=== PATIENT | female | born 2000 | race Caucasian/White ===

== ENCOUNTER 2023-07-02 03:11 | Inpatient (IN) | payer MEDICAID, OTHER ==
[~2023-07-02] VITALS: Ht 162.6 cm; Wt 72.1 kg
[2023-07-02] MEDS ORDERED: ONDANSETRON HCL 4MG/2ML INJ IV STA (04:18)
[2023-07-02] MEDS ORDERED: MORPHINE SULFATE 4 MG/ML CPJ (NOT FOR IM USE) IV STA (04:18)
[2023-07-02] MEDS ORDERED: SODIUM CHLORIDE 0.9% 1,000 ML IV ONE (04:30)
[2023-07-02 05:27] LABS: BASOPHILS % 0.3 % (0.0-2.0); HEMATOCRIT. 38.3 % (36.0-48.0); HEMOGLOBIN. 12.9 g/dL (12.0-16.0); LYMPHOCYTES % 7.3 % (20.0-50.0); MEAN CORPUSCULAR HEMOGLOBIN 28.3 pg (28.0-32.0); MEAN CORPUSCULAR HGB CONC 33.6 g/dL (31.0-37.0); MEAN CORPUSCULAR VOLUME 84.4 fL (81.0-99.0); MEAN PLATELET VOLUME 7.1 fl (7.4-10.4); MONOCYTES % 3.8 % (2.0-8.0); NEUTROPHILS % 88.6 % (40.0-76.0); PLATELET 334 x1000/uL (130-400); RED BLOOD CELL COUNT 4.54 mill/uL (4.2-5.4); RED CELL DISTRIBUTION WIDTH 13.9 % (11.6-14.6); WHITE BLOOD COUNT 12.5 x1000/uL (4.5-11.0)
[2023-07-02 05:39] LABS: CALCIUM 8.6 mg/dL (8.5-10.1); CHLORIDE 110 mEq/L (98-107); INDEX HEMOLYSI 1 (1-3); INDEX ICTERIC 1 (1-4); INDEX LIPEMIC 1 (1-3); POTASSIUM 3.8 mEq/L (3.5-5.1); SODIUM 136 mEq/L (136-145); UREA NITROGEN BLOOD 9 mg/dL (7-21)
[2023-07-02 05:43] LABS: CARBON DIOXIDE 21 mEq/L (21-32); CREATININE 0.5 mg/dL (0.6-1.3); GLUCOSE 128 mg/dL (70-105)
[2023-07-02 05:50] LABS: HCG SCREEN NEGATIVE
[2023-07-02] MEDS ORDERED: MORPHINE SULFATE 4 MG/ML CPJ (NOT FOR IM USE) IV ONE (09:00)
[2023-07-02 10:00] VITALS: BP 134/79; PULSE 80; RESP 20; TEMP 97.5
[2023-07-02 10:26] VITALS: BP 134/79; PULSE 80; RESP 20; TEMP 97.5
[2023-07-02] MEDS ORDERED: NALOXONE HCL 0.4MG/ML VIAL IV PRN (10:30)
[2023-07-02] MEDS ORDERED: ONDANSETRON HCL 4MG/2ML INJ IV PRN (10:30)
[2023-07-02] MEDS ORDERED: ACETAMINOPHEN 325MG TABLET PO PRN (10:30)
[2023-07-02] MEDS ORDERED: HYDROCODONE/ACETAMINOPHEN 5/325MG TABLET PO PRN (10:30)
[2023-07-02 12:00] VITALS: BP 127/79; PULSE 82; RESP 18; TEMP 97.8
[2023-07-02 16:00] VITALS: BP 119/81; PULSE 99; RESP 18; TEMP 98
[2023-07-02 16:23] VITALS: BP 127/79; PULSE 82; TEMP 97.5; O2SAT 100
== END 2023-07-02 17:30 | disposition home or self-care (01) | DRG 342 ==
LOC: ER 03:11 → 6EST 08:54 → EDBEDREQTM 09:01 → EDBEDREQ 09:01 → ENRESERV 09:10
PROVIDERS: ADMIT Internal Medicine; ATTEND Internal Medicine
DX: S42.302A Unspecified fracture of shaft of humerus, left arm, initial encounter for closed fracture (principal); W10.9XXA Fall (on) (from) unspecified stairs and steps, initial encounter; Y93.89 Activity, other specified; Y92.89 Other specified places as the place of occurrence of the external cause; Y99.8 Other external cause status
CPT/HCPCS: 36415; 73060; 73090; 80048; 84703; 85025; 99285; J2270; J2405; J7030